=== PATIENT | female | born 1970 | race Caucasian/White ===

== ENCOUNTER 2022-08-21 13:46 | Outpatient (OUT) | payer OTHER, MEDICAID, SELFPAY | END 2022-08-21 13:47 | LOC: WC 13:47 | PROVIDERS: PCP Podiatrist Foot & Ankle Surgery; Visit Provider Podiatrist Foot & Ankle Surgery | DX: E11.621 Type 2 diabetes mellitus with foot ulcer (principal); L97.421 Non-pressure chronic ulcer of left heel and midfoot limited to breakdown of skin; L97.422 Non-pressure chronic ulcer of left heel and midfoot with fat layer exposed | CPT/HCPCS: 11042; 99212; G0463 ==

== ENCOUNTER 2022-09-19 13:19 | Outpatient (OUT) | payer MEDICARE, MEDICAID, SELFPAY | END 2022-09-19 13:20 | disposition home or self-care (01) | LOC: WC 13:19 | PROVIDERS: PCP Podiatrist Foot & Ankle Surgery; Visit Provider Podiatrist Foot & Ankle Surgery | DX: R09.89 Other specified symptoms and signs involving the circulatory and respiratory systems (principal); I70.203 Unspecified atherosclerosis of native arteries of extremities, bilateral legs; E11.621 Type 2 diabetes mellitus with foot ulcer; L97.421 Non-pressure chronic ulcer of left heel and midfoot limited to breakdown of skin; L02.612 Cutaneous abscess of left foot; E11.610 Type 2 diabetes mellitus with diabetic neuropathic arthropathy; E11.42 Type 2 diabetes mellitus with diabetic polyneuropathy; M21.962 Unspecified acquired deformity of left lower leg; L97.422 Non-pressure chronic ulcer of left heel and midfoot with fat layer exposed | CPT/HCPCS: 11042; 93923 ==

== ENCOUNTER 2022-09-19 13:44 | Outpatient (OUT) | payer MEDICARE, MEDICAID, SELFPAY ==
--- NOTE | 2022-09-19 13:32 | CA_ITS ---
[facility] Test Date: 2022-09-21 Pat Name: RUFUS ABARCA Department: Room: - Gender: Female Syruper: : 1970 Requested By: CHRISTEN DURAN Order Number: [id number] Reading MD: SHADE GOMEZ Interpretive Statements Biphasic doppler waveforms PVR waveforms with normal upstroke, amplitude but loss of dicrotic notch Right: - significant pressure gradient between the thigh and calf cuff - normal EDA Left: - significant pressure gradient between the thigh and calf cuff - signficant pressure gradient between the calf and DP cuff - abnormal EDA Impression: - elevated indices (B/L thigh, left calf) consistent with calcified, noncompressible arterial perla, which may underestimate the degree of arterial disease present - significant left outflow (tibioperoneal) arterial disease with mild hemodynamic impairment of the left lower extremity at rest (left EDA 0.94) Electronically Signed On 09-22-2022 15:13:33 EDT by SHADE GOMEZ
== END 2022-09-19 13:45 | disposition home or self-care (01) ==
LOC: CARD 13:45
PROVIDERS: PCP Podiatrist Foot & Ankle Surgery; Visit Provider Podiatrist Foot & Ankle Surgery
DX: R09.89 Other specified symptoms and signs involving the circulatory and respiratory systems (principal); I70.203 Unspecified atherosclerosis of native arteries of extremities, bilateral legs
CPT/HCPCS: 93923

== ENCOUNTER 2022-10-23 11:10 | Outpatient (OUT) | payer MEDICARE, MEDICAID, SELFPAY | END 2022-10-23 11:11 | disposition home or self-care (01) | LOC: WC 11:10 | PROVIDERS: PCP Podiatrist Foot & Ankle Surgery; Visit Provider Podiatrist Foot & Ankle Surgery | DX: E11.621 Type 2 diabetes mellitus with foot ulcer (principal); L97.421 Non-pressure chronic ulcer of left heel and midfoot limited to breakdown of skin | CPT/HCPCS: 11042 ==

== ENCOUNTER 2022-11-20 12:52 | Outpatient (OUT) | payer MEDICARE, MEDICAID, SELFPAY | END 2022-11-20 12:53 | disposition home or self-care (01) | LOC: WC 12:52 | PROVIDERS: PCP Podiatrist Foot & Ankle Surgery; Visit Provider Podiatrist Foot & Ankle Surgery | DX: E11.621 Type 2 diabetes mellitus with foot ulcer (principal); L97.421 Non-pressure chronic ulcer of left heel and midfoot limited to breakdown of skin | CPT/HCPCS: G0463 ==